=== PATIENT | male | born 1995 | race American Indian/Alaskan Native ===

== ENCOUNTER 2017-11-23 17:17 | Emergency (ER) | payer OTHER ==
[~2017-11-23] VITALS: Ht 378.5 cm; Wt 87.5 kg
[~2017-11-23 17:17] MED LIST: ADVAIR 250-501 EACH; ALBUTEROL2.5 MG/3 M; CRUTCH1 EACH
[2017-11-23] MEDS ORDERED: IBUPROFEN200 M1 PO (17:29)
[2017-11-23] MEDS ORDERED: ALL DAY ALLERGY10 M2 PO (17:30)
--- NOTE | 2017-11-24 18:20 | EKG ---
[facility] [address] [facility] [place] [address] Signed Sinus tachycardia Right axis deviation Abnormal ECG No previous ECGs available Confirmed by DICK VIERA MD ([id number]) on 11/24/2017 6:19:53 PM Electronically Signed By: DICK VIERA MD 11/24/17 1820 PATIENT NAME: ZANE WILSON Electrocardiogram DATE OF : [birth year] PHYSICIAN: DICK VIERA MD REPORT #: [id number] REPORT IS CONFIDENTIAL AND NOT TO BE RELEASED WITHOUT AUTHORIZATION
== END 2017-11-23 18:25 | disposition home or self-care (01) ==
LOC: ED 17:17
DX: R00.2 Palpitations (principal); R00.0 Tachycardia, unspecified; J45.909 Unspecified asthma, uncomplicated; Z90.89 Acquired absence of other organs; Z88.0 Allergy status to penicillin; Z79.899 Other long term (current) drug therapy
CPT/HCPCS: 71045; 80048; 84484; 85025; 93005; 93010; 99283

== ENCOUNTER → 2019-04-14 | Emergency (ER) | payer OTHER ==
[~2019-04-14] VITALS: Ht 378.5 cm; Wt 87.5 kg
[~2019-04-14] MED LIST changes: +ALL DAY ALLERGY10 M2 PO; +IBUPROFEN200 M1 PO; +IBUPROFEN800 MG PO
== END ==
LOC: ED 23:47
DX: R10.9 Unspecified abdominal pain (principal); Z88.0 Allergy status to penicillin; Z79.899 Other long term (current) drug therapy
CPT/HCPCS: 80053; 81001; 83690; 85025; 99284

== ENCOUNTER 2019-06-17 23:04 | Emergency (ER) | payer OTHER ==
[~2019-06-17] VITALS: Ht 175.3 cm; Wt 87.5 kg
== END 2019-06-18 00:22 | disposition home or self-care (01) ==
LOC: ED 23:04
DX: S83.92XA Sprain of unspecified site of left knee, initial encounter (principal); Z88.0 Allergy status to penicillin; Z79.899 Other long term (current) drug therapy; X50.1XXA Overexertion from prolonged static or awkward postures, initial encounter; Y93.67 Activity, basketball
CPT/HCPCS: 73560; 99283

== ENCOUNTER 2019-09-29 19:38 | Emergency (ER) | payer OTHER ==
[~2019-09-29] VITALS: Ht 175.3 cm; Wt 84.4 kg
--- OUTSIDE RECORDS SUMMARY | ~2019-09-29 | XMS | Encounter Summary ---
Demographics + + + | Address | [address] | | | [place] [address] | + + + | Home Phone | | + + + | Preferred Language | Unknown | + + + | Marital Status | Single | + + + | Voodoo Affiliation | Unknown | + + + | Race | Unknown | + + + | Ethnic Group | Unknown | + + + Author + + + | Author | [facility] | | | and [place] | + + + | Organization | [facility] | | | and [place] | + + + | Address | Unknown | + + + | Phone | Unavailable | + + + Support + + + + + | Name | Relationship | Address | Phone | + + + + + | Per Pt None | ECON | [address] | | | | | [place] | | | | | [address] | | + + + + + Care Team Providers + +------+ + | Care Engineering Consultant Name | Role | Phone | + +------+ + | [phone], No Tape - Cf [id number] | PCP | Unavailable | | - | | | + +------+ + Reason for Visit + + + | Reason | Comments | + + + | Knee Injury | Rt knee "pop" during basketball | + + + Encounter Details +--------+ + + + + | Date | Type | Department | Care Team | Description | +--------+ + + + + | 02/02/ | Emergency | [facility] | Cheyenne Saldaña, | Sprain of right | | 2019 | | [facility] | [employer] [address], | knee, unspecified | | | | EM[facility]Y CENTER | EMERGENCY RM | ligament, initial | | | | [address] | [place] [address] | encounter (Primary | | | | [place], [place] | [phone] | Dx) | | | | [address] | | | | | | [phone] | | | +--------+ + + + + Social History + +-------+ +--------+------+ | Tobacco Use | Types | Packs/Day | Years | Date | | | | | Used | | + +-------+ +--------+------+ | Never Assessed | | | | | + +-------+ +--------+------+ + + + | Sex Assigned at | Date Recorded | | | | + + + | Not on file | | + + + + + + + | Job Start Date | Occupation | Industry | + + + + | Not on file | Not on file | Not on file | + + + + + + + + | Travel History | Travel Start | Travel End | + + + + + + | No recent travel history available. | + + documented as of this encounter Last Filed Vital Signs + + + + + | Vital Sign | Reading | Time Taken | Comments | + + + + + | Blood Pressure | 150/91 | 02/02/2019 10:11 PM | | | | | PDT | | + + + + + | Pulse | 69 | 02/02/2019 10:11 PM | | | | | PDT | | + + + + + | Temperature | 36.7 C (98.1 F) | 02/02/2019 8:44 PM | | | | | PDT | | + + + + + | Respiratory Rate | 16 | 02/02/2019 10:11 PM | | | | | PDT | | + + + + + | Oxygen Saturation | 95% | 02/02/2019 10:11 PM | | | | | PDT | | + + + + + | Inhaled Oxygen | - | - | | | Concentration | | | | + + + + + | Weight | 87.5 kg (193 lb) | 02/02/2019 7:50 PM | | | | | PDT | | + + + + + | Height | 177.8 cm (5' 10") | 02/02/2019 7:50 PM | | | | | PDT | | + + + + + | Body Mass Index | 27.69 | 02/02/2019 7:50 PM | | | | | PDT | | + + + + + documented in this encounter Discharge Instructions Instructions Cheyenne Saldaña ARNP - 02/02/2019Xrays were negative. REST: Activity as tolerated. If it hurts you should not be doing it, if it does not hurt t hen advanced activity slowly, range of motion exercises as tolerated. ICE: Ice 20 minutes 4-6 times a day as needed to help decrease inflammation. Take anti-inflammatory as for the next 7 days. Taking this medication will help control in flammation, thus decreasing your pain. Follow up with Orthopedics Surgery as needed. documented in this encounter Medications at Time of Discharge + + + +---------+ + + | Medication | Sig | Dispensed | Refills | Start | End Date | | | | | | Date | | + + + +---------+ + + | ibuprofen | Take 1 tablet by | 30 | 0 | 02/03/20 | | | (ADVIL,MOTRIN) 800 | mouth every 8 hours | tablet | | 19 | 9 | | MG tablet | as needed for Pain | | | | | | | for up to 10 days. | | | | | + + + +---------+ + + | methocarbamol | Take 2 tablets by | 24 | 0 | 02/03/20 | | | (ROBAXIN) 750 mg | mouth every 6 hours | tablet | | 19 | 9 | | tablet | as needed for Muscle | | | | | | | spasms for up to 3 | | | | | | | days. | | | | | + + + +---------+ + + documented as of this encounter Plan of Treatment Not on filedocumented as of this encounter Procedures + +--------+ + + + | Procedure Name | Priori | Date/Time | Associated Diagnosis | Comments | | | ty | | | | + +--------+ + + + | XR KNEE RIGHT 3 VW | STAT | 02/02/2019 | | Results for this | | | | 8:15 PM | | procedure are in the | | | | PDT | | results section. | + +--------+ + + + documented in this encounter Results XR Knee Right 3 Vw (02/02/2019 8:15 PM PDT) + + | Specimen | + + | | + + + + + | Narrative | Performed At | + + + | KNEE THREE VIEWS RIGHT CLINICAL INFORMATION: Patient felt a | [facility] | | pop in right knee playing basketball today, pain laterally and | | | posteriorly. COMPARISON: None FINDINGS: Normal bone density | | | and alignment. Joint spaces throughout the knee maintained. No | | | joint effusion or fracture. Soft tissues normal. Metallic suture | | | anchor noted in the lateral femoral condyle. IMPRESSION: Negative | | | knee. Signed by: Nahum, John Vo Sign Date/Time: | | | 02/02/2019 8:25 PM | | + + + + + | Procedure Note | + + | Raymon, Rad Results In - 02/02/2019 8:29 PM PDT | | KNEE THREE VIEWS RIGHT | | | | CLINICAL INFORMATION: | | Patient felt a pop in right knee playing basketball today, pain | | laterally and posteriorly. | | | | COMPARISON: | | None | | | | FINDINGS: | | Normal bone density and alignment. Joint spaces throughout the knee | | maintained. No joint effusion or fracture. Soft tissues normal. | | Metallic suture anchor noted in the lateral femoral condyle. | | | | IMPRESSION: | | Negative knee. | | | | | | | | Signed by: Tvao Sidhu Corey | | Sign Date/Time: 02/02/2019 8:25 PM | + + + +---------+ + + | Performing | Address | City/State/Zipcode | Phone Number | | Organization | | | | + +---------+ + + | [facility] | | | | + +---------+ + + documented in this encounter Visit Diagnoses + + | Diagnosis | + + | Sprain of right knee, unspecified ligament, initial encounter - Primary | + + documented in this encounter Administered Medications + +--------+ +---------+------+------+ | Medication Order | MAR | Action | Dose | Rate | Site | | | Action | Date | | | | + +--------+ +---------+------+------+ | HYDROcodone-acetaminophen | Given | 02/03/20 | 2 | | | | (NORCO) 5-325 mg per tablet 2 | | 19 8:58 | tablets | | | | tablet 2 tablet, Oral, ONCE, Sat | | PM PDT | | | | | 02/02/19 at 2049, For 1 dose | | | | | | + +--------+ +---------+------+------+ +---+---+ | | | +---+---+ + +-------+ +--------+---+---+ | ibuprofen (ADVIL,MOTRIN) tablet | Given | 02/03/20 | 600 mg | | | | 600 mg 600 mg, Oral, ONCE, Sat | | 19 8:58 | | | | | 02/02/19 at 2049, For 1 dose, Give | | PM PDT | | | | | with food., | | | | | | + +-------+ +--------+---+---+ +---+---+ | | | +---+---+ documented in this encounter
--- OUTSIDE RECORDS SUMMARY | ~2019-09-29 | XMS | Encounter Summary ---
Demographics + + + | Address | [address] | | | [place] [address] | + + + | Home Phone | | + + + | Preferred Language | Unknown | + + + | Marital Status | Single | + + + | Taoism Affiliation | Unknown | + + + | Race | Unknown | + + + | Ethnic Group | Unknown | + + + Author + + + | Author | [facility] | | | and [place] | + + + | Organization | [facility] | | | and [place] | [...] [place] | | | | | [address] | | + + + + + Care Team Providers + +------+ + | Care Welding Machine Operator Electroslag Name | Role | Phone | + +------+ + | [phone], No Tape - Cf [id number] | PCP [...] 2019 | | [facility] | [facility] [address], | knee, unspecified | | | | EMERGENCY CENTER | EMERGENCY RM | ligament, initial | | | | [address] | [place] [address] | encounter (Primary | | | | [place], [place] | [phone] | Dx) | | | | [address] | | | | | | [phone] | | | +--------+ + + + [...] | | | | | Signed by: Tavo Sidhu Corey | | Sign Date/Time: 02/02/2019 [...]
--- OUTSIDE RECORDS SUMMARY | ~2019-09-29 | XMS | Clinical Summary ---
Demographics + + + | Address | [address] | | | [place] [address] | + + + | Home Phone | | + + + | Preferred Language | Unknown | + + + | Marital Status | Single | + + + | Mu-Ism Affiliation | Unknown | + + + | Race | Unknown | + + + | Ethnic Group | Unknown | + + + Author + + + | Author | [facility] | | | and [place] | + + + | Organization | [facility] | | | and [place] | + + + | Address | Unknown | + + + | Phone | Unavailable | + + + Support + + + + + | Name | Relationship | Address | Phone | + + + + + | Per Pt None | ECON | [address] | | | | | [place] | | | | | [address] | | + + + + + Care Team Providers + +------+ + | Care Biscuit Machine Operator Name | Role | Phone | + +------+ + | [phone], No Tape - Cf 2t140 | PCP | Unavailable | | - | | | + +------+ + Allergies + + + + + + | Active Allergy | Reactions | Severity | Noted | Comments | | | | | Date | | + + + + + + | Penicillins | Other (See Comments) | | 02/03/20 | DOES NOT REMEMBER, | | | | | 19 | RXN A BABY | + + + + + + Medications Not on file Active Problems Not on file Social History + +-------+ +--------+------+ | Tobacco [...] recent travel history available. | + + Last Filed Vital Signs + + + [...] | | + + + + + Plan of Treatment + + + + + | Health Maintenance | Due Date | Last Done | Comments | + + + + + | Vaccine: | | 09/19/2008, 03/20/2008, | | | Dtap/Tdap/Td (8 - | 8 | 05/08/2000, Additional history | | | Td) | | exists | | + + + + + | Vaccine: Influenza | | | | | (#1) | 9 | | | + + + + + Results Not on filefrom Last 3 Months Insurance + +--------+ +--------+ +---------+--------+ | Payer | Benefi | Subscriber | Effect | Phone | Address | Type | | | t Plan | ID | marcelino | | | | | | / | | Dates | | | | | | Group | | | | | | + +--------+ +--------+ +---------+--------+ | [place] | MEDICA | [id number] | 02/03/20 | [phone] | | Medica | | | [place] | | 19-Pre | 2 | | id | | | PLUS | | sent | | | | + +--------+ +--------+ +---------+--------+ + +--------+ +--------+ + + | Guarantor Name | Accoun | Relation to | Date | Phone | Billing Address | | | t Type | Patient | of | | | | | | | | | | + +--------+ +--------+ + + | Brad Bernstein | Person | Self | [birth year] | [address] | | | al/Fam | | 1994 | [phone] | [place] [address] | | | melody | | | 2 (Home) | | + +--------+ +--------+ + + Advance Directives + + + + + | Type | Date Recorded | Patient | Explanation | | | | Qa Tech | | + + + + + | Power of | | | | | Radiologic Technician | | | | + + + + + | Advance | | | | | Directive | | | | + + + + +
--- OUTSIDE RECORDS SUMMARY | ~2019-09-29 | XMS | Clinical Summary ---
Demographics + + + | Address | [address] | | | [place] [address] | + + + | Home Phone | | + + + | Preferred Language | Unknown | + + + | Marital Status | Single | + + + | Yazidism Affiliation | Unknown | + + + | Race | Unknown | + + + | Ethnic Group | Unknown | + + + Author + + + | Author | [facility] | | | and [place] | + + + | Organization | [facility] | | | and [place]ana [...] [place] | | | | | [address] | | + + + + + Care Team Providers + +------+ + | Care Training Development Manager Name | Role | Phone | + +------+ + | [phone], No Tape - Cf 2t140 | PCP [...] | + +--------+ +--------+ +---------+--------+ | [place]ID [place] | MEDICA | [id number] | 02/03/20 | [phone] | | Medica | | | ID [...] | | al/Fam | | 1994 | [phone] | [place] [address] | | | [place] | | | 2 (Home) | | + +--------+ +--------+ + + Advance Directives + + + + + | Type | Date Recorded | Patient | Explanation | | | | Community Health Nursing Director | | + + + + + | Power of | | | | | Deposition Reporter | | | | + + + + + | Advance | | | | | Directive | | | | + + + + +
[2019-09-29] MEDS ORDERED: CRUTCH1 EACH (19:59)
== END 2019-09-29 20:30 | disposition home or self-care (01) ==
LOC: ED 19:38
DX: S83.91XA Sprain of unspecified site of right knee, initial encounter (principal); Z88.0 Allergy status to penicillin; X50.1XXA Overexertion from prolonged static or awkward postures, initial encounter; Y93.67 Activity, basketball; Y92.310 Basketball court as the place of occurrence of the external cause
CPT/HCPCS: 99283; A9270

== ENCOUNTER 2023-05-31 13:14 | Emergency (ER) | payer OTHER ==
[~2023-05-31] VITALS: Ht 175.3 cm; Wt 83.9 kg
[2023-05-31 14:53] VITALS: BP 136/74
== END 2023-05-31 14:55 | disposition home or self-care (01) ==
LOC: ED 13:14
DX: S81.011A Laceration without foreign body, right knee, initial encounter (principal); W22.8XXA Striking against or struck by other objects, initial encounter; Z88.0 Allergy status to penicillin
CPT/HCPCS: 73560; 99283-25

== ENCOUNTER 2024-05-22 20:55 | Emergency (ER) | payer OTHER ==
[~2024-05-22] VITALS: Ht 175.3 cm; Wt 94.3 kg
[2024-05-22 22:14] VITALS: BP 130/88
== END 2024-05-22 22:17 | disposition home or self-care (01) ==
LOC: ED 20:55
DX: S93.402A Sprain of unspecified ligament of left ankle, initial encounter (principal); X50.0XXA Overexertion from strenuous movement or load, initial encounter; Y93.67 Activity, basketball; Z88.0 Allergy status to penicillin
CPT/HCPCS: 73610